=== PATIENT | female | born 1990 | race Caucasian/White ===

== ENCOUNTER 2023-08-11 08:51 | Emergency (ER) | payer BC, SELFPAY ==
[2023-08-11] VITALS (7 sets, daily range): BP systolic 128–135; BP diastolic 81–96; PULSE 78–98; RESP 12–22; TEMP 36.7; O2SAT 93–98; BMI 40.2
--- NOTE | 2023-08-11 09:06 | ECG_ITS ---
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
--- NOTE | 2023-08-11 09:20 | ED.CHESTPAI1 ---
HPI - Chest Pain General Chief Complaint: Chest Pain Stated Complaint: CHEST PAIN Time Seen by Provider: 08/11/23 08:55 Source: patient Mode of arrival: walk-in History of Present Illness HPI narrative: Patient woke with a painful knot in my chest - points to the mid sternal area. Pain is worse with pressing on the area or movement of the torso. Patient works at a physical job which involves lifting - but denies any known recent injury. No other associated symptoms. Nothing taken at home for pain, Negative PMHx. Related Data Previous Rx's Medication Instructions Recorded nabumetone 750 mg tablet 750 mg PO BID PRN pain #14 tabs 08/11/23 Allergies Allergy/AdvReac Type Severity Reaction Status Date / Time No Known Drug Allergies Allergy Verified 08/11/23 09:01 Exam Narrative Exam Narrative: Nurses notes and vital signs reviewed and patient is not hypoxic. afebrile General: Well-appearing and in no apparent distress. Skin: Warm, dry, no pallor noted. Head: Normocephalic, atraumatic. Eye: Pupils are equal, round and EOMI. No scleral icterus. Cardiovascular: Regular Rate and Rhythm without murmur, gallop or rub. Respiratory: No accessory muscle use or respiratory distress. Lungs are clear to auscultation, no wheezing, rales or rhonchi Chest Wall: anterior chest wall tenderness at the mid sternum - palpation worsens the pain Musculoskeletal: normal ROM, no calf or popliteal tenderness, no lower extremity edema/swelling GI: Abdomen is soft, non-distended. Normal bowel sounds. No tenderness to palpation. No rebound, guarding, or rigidity noted. Neurological: A&O x4. No cranial nerve dysfunction observed. No truncal ataxia. Moves all extremities. Sensation intact. Psychiatric: Cooperative and interactive. Normal mood and affect. Constitutional Vital Signs, click to edit/add: Last Vital Signs Temp 98.0 F 08/11/23 08:56 Pulse 78 08/11/23 09:50 Resp 20 08/11/23 09:50 BP 128/81 08/11/23 09:31 Pulse Ox 93 L 08/11/23 09:50 O2 Del Method Room Air 08/11/23 08:56 Course Vital Signs Vital signs: Vital Signs Temperature 98.0 F 08/11/23 08:56 Pulse Rate 98 H 08/11/23 08:56 Respiratory Rate 18 08/11/23 08:56 Blood Pressure 135/96 H 08/11/23 08:56 Pulse Oximetry 96 08/11/23 08:56 Oxygen Delivery Method Room Air 08/11/23 08:56 Temperature 98.0 F 08/11/23 08:56 Pulse Rate 78 08/11/23 09:50 Respiratory Rate 20 08/11/23 09:50 Blood Pressure 128/81 08/11/23 09:31 Pulse Oximetry 93 L 08/11/23 09:50 Oxygen Delivery Method Room Air 08/11/23 08:56 MDM - Chest Pain MDM Narrative Medical decision making narrative: Patient was placed on cardiac technologist and EKG obtained. Blood drawn and sent for evaluation. chest x-ray obtained. She was given Toradol for pain. Lab Data Attestation: I reviewed the patient's lab results. Labs: Lab Results 08/11/23 Range/Units 09:22 WBC 10.3 (4.0-11.0) 10^3/uL RBC 4.72 (4.20-5.40) 10^6/uL Hgb 13.6 (12.0-16.0) g/dL Hct 41.8 (36.0-48.0) % MCV 88.6 (81.0-99.0) fL MCH 28.8 (26.7-34.0) pg MCHC 32.5 (29.9-35.2) g/dL RDW 12.4 (11.0-15.0) % Plt Count 345 (150-450) 10^3/uL MPV 10.5 (9.5-13.5) fL Neut % (Auto) 71.1 (43.0-75.0) % Lymph % (Auto) 17.8 L (20.5-60.0) % Teller % (Auto) 8.5 (1.7-12.0) % Eos % (Auto) 1.6 (0.9-7.0) % Baso % (Auto) 0.5 (0.2-2.0) % Neut # (Auto) 7.3 H (1.4-6.5) 10^3/uL Lymph # (Auto) 1.8 (1.2-3.8) 10^3/uL Teller # (Auto) 0.9 H (0.3-0.8) 10^3/uL Eos # (Auto) 0.2 (0.0-0.7) 10^3/uL Baso # (Auto) 0.1 (0.0-0.1) 10^3/uL Abs Immat Gran (auto) 0.05 H (0.00-0.03) 10^3/uL Imm/Tot Granulo (auto) 0.5 (0.0-0.5) % D-Dimer 0.24 (<=0.59) mg/L FEU Sodium 143 (136-145) mmol/L Potassium 3.8 (3.5-5.1) mmol/L Chloride 106 (98-107) mmol/L Carbon Dioxide 25.9 (21.0-32.0) mmol/L Anion Gap 14.9 BUN 7.0 (7.0-18.0) mg/dL Creatinine 0.71 (0.55-1.02) mg/dL Est GFR ( Amer) >60 (>=60) Est GFR (Non-Af Amer) >60 (>=60) BUN/Creatinine Ratio 9.9 Glucose 111 H (74-106) mg/dL Calcium 8.9 (8.5-10.1) mg/dL Troponin I High Sens <4.0 L (4.0-51.3) pg/mL Imaging Data Chest x-ray: Radiologist's impression: Patient Name: AURELIA SALTER MRN: [id number] date: 1990 Sex: F Assigned Patient Location: ER Current Patient Location: ED.MAIN Accession/Order Number: [id number] Exam Date: 08/11/2023 09:30 Report Date: 08/11/2023 09:55 At the request of: SEAN TONG Procedure: XR chest 1V EXAM: XR chest 1V HISTORY: chest pain COMPARISON: Chest study dated 06/06/2014 TECHNIQUE: AP view of the chest was obtained with portable technique at 0930 hours. FINDINGS: Heart and mediastinal contours are unremarkable in appearance. No acute infiltrate or consolidations are seen. No obvious pneumothorax. Bony structures appear grossly intact. IMPRESSION: No acute process seen in the chest. ECG Data Attestation: I personally reviewed and interpreted this ECG as follows: Interpretation: EKG interpretation: Emergency Department physician interpretation. Normal sinus rhythm at 86bpm. Normal axis, normal intervals, non-specific T wave changes, no ST segment elevation or depression. Heart Score History: Slightly/Non-Suspicious ECG: Normal Age: <45 years Risk Factors: No Risk Factors Troponin: <Normal Limit Total Heart Score Recommendations & Risks:: 0 Discharge Plan Discharge Chief Complaint: Chest Pain Clinical Impression: Acute chest wall pain Patient Disposition: Home, Self-Care Time of Disposition Decision: 10:12 Prescriptions / Home Meds: New nabumetone 750 mg tablet 750 mg PO BID PRN (Reason: pain) Qty: 14 0RF Instructions: Chest Wall Pain (ED) Stand Alone Forms: Portal Instructions Referrals: Physician,Non-Staff, MD [Primary Care Provider] - 1 week
--- NOTE | 2023-08-11 09:35 | XR_ITS ---
The [address] [address] Patient Name: AURELIA SALTER MRN: [id number] date: 1990 Sex: F Assigned Patient Location: ER Current Patient Location: ED.MAIN Accession/Order Number: [id number] Exam Date: 08/11/2023 09:30 Report Date: 08/11/2023 09:55 At the request of: SEAN TONG Procedure: XR chest 1V EXAM: XR chest 1V HISTORY: chest pain COMPARISON: Chest study dated 06/06/2014 TECHNIQUE: AP view of the chest was obtained with portable technique at 0930 hours. FINDINGS: Heart and mediastinal contours are unremarkable in appearance. No acute infiltrate or consolidations are seen. No obvious pneumothorax. Bony structures appear grossly intact. XR/XR chest 1V IMPRESSION: No acute process seen in the chest. Electronically authenticated by: REGINALD TIRADO Date: 08/11/2023 09:55
[2023-08-11] MEDS: KETOROLAC TROMETHAMINE 10 MG TABLET PO (09:36)
[2023-08-11 09:37] LABS: Basophils Absolute Auto 0.1 10^3/uL (0.0-0.1); Basophils Percent Auto 0.5 % (0.2-2.0); Eosinophils Absolute Auto 0.2 10^3/uL (0.0-0.7); Eosinophils Percent Auto 1.6 % (0.9-7.0); Hematocrit 41.8 % (36.0-48.0); Hemoglobin 13.6 g/dL (12.0-16.0); Immature Granulocytes Abs Auto 0.05 10^3/uL (0.00-0.03); Immature Granulocytes Pct Auto 0.5 % (0.0-0.5); Lymphocytes Absolute Auto 1.8 10^3/uL (1.2-3.8); Lymphocytes Percent Auto 17.8 % (20.5-60.0); Mean Corpuscular HGB Conc 32.5 g/dL (29.9-35.2); Mean Corpuscular Hemoglobin 28.8 pg (26.7-34.0); Mean Corpuscular Volume 88.6 fL (81.0-99.0); Mean Platelet Volume 10.5 fL (9.5-13.5); Monocytes Absolute Auto 0.9 10^3/uL (0.3-0.8); Monocytes Percent Auto 8.5 % (1.7-12.0); Neutrophils Absolute Auto 7.3 10^3/uL (1.4-6.5); Neutrophils Percent Auto 71.1 % (43.0-75.0); Platelet Count 345 10^3/uL (150-450); Red Blood Count 4.72 10^6/uL (4.20-5.40); Red Cell Distribution Width 12.4 % (11.0-15.0); White Blood Count 10.3 10^3/uL (4.0-11.0)
[2023-08-11 09:44] LABS: D Dimer 0.24 mg/L FEU (<=0.59)
[2023-08-11 09:51] LABS: Anion Gap 14.9; BUN Creatinine Ratio 9.9; Calcium 8.9 mg/dL (8.5-10.1); Carbon Dioxide 25.9 mmol/L (21.0-32.0); Chloride 106 mmol/L (98-107); Estimated GFR (African America >60 (>=60); Estimated GFR (Non-African Ame >60 (>=60); Glucose 111 mg/dL (74-106); Potassium 3.8 mmol/L (3.5-5.1); Sodium 143 mmol/L (136-145); Troponin I High Sensitivity <4.0 pg/mL (4.0-51.3)
== END 2023-08-11 10:23 | disposition home or self-care (01) ==
PROVIDERS: Emergency Provider Emergency Medicine
DX: R07.89 Other chest pain (principal)
CPT/HCPCS: 36415; 71045; 80048; 84484; 85025; 85378; 93005; 99285